=== PATIENT | male | born 1985 | race Caucasian/White ===

== ENCOUNTER 2021-05-16 13:40 | Outpatient (CLI) | payer BC ==
[2021-05-16 14:52] LABS: Hemoglobin 12.5 g/dL (13.5-17.5); Mean Corpuscular HGB CONC 35.1 g/dL (32.0-36.0); Mean Corpuscular Hemoglobin 31.8 pg (27.0-33.0); Mean Corpuscular Volume 90.6 fl (81.2-95.1); Mean Platelet Volume 10.4 fl (7.4-10.4); Platelet Count 245 10x3/uL (150-450); RBC Distribution Width 12.2 % (11.5-14.5); Red Blood Cell (RBC) Count 3.93 10x6/uL (4.32-5.72); White Blood Cell (WBC) Count 4.7 10x3/uL (3.5-10.5)
[2021-05-16 15:22] LABS: INR-International Normal Ratio 0.9; PTT 28.3 sec (22.0-33.0); Prothrombin Time 10.3 sec (9.5-12.1)
[2021-05-17 00:24] LABS: SARS-CoV-2 PCR by NAA Not Detected (NotDetected)
== END 2021-05-16 13:41 | disposition home or self-care (01) ==
LOC: LABBT 13:40
PROVIDERS: ATTEND Neurological Surgery
DX: Z01.812 Encounter for preprocedural laboratory examination (principal); M51.27 Other intervertebral disc displacement, lumbosacral region; Z20.822 Contact with and (suspected) exposure to COVID-19
CPT/HCPCS: 85027; 85610; 85730; U0003; U0005

== ENCOUNTER 2021-05-19 05:44 | Day surgery (SDC) | payer BC ==
[2021-05-16 13:02] VITALS: BMI 25.0
[2021-05-19] MEDS ORDERED: Thrombin 5000 UNITS/5 ML VIAL ONE (06:11)
[2021-05-19] MEDS ORDERED: Bupivacaine 0.25% HCL 30 ML VIAL ONE (06:11)
[2021-05-19] MEDS ORDERED: Neomycin-Polymyxin 1 ML AMP ONE (06:11)
[2021-05-19] MEDS ORDERED: EPINEPHrine 1 MG/ML AMP ONE (06:11)
[2021-05-19] MEDS ORDERED: Lidocaine 2% Jelly 5 ML TUBE ONE (06:16)
[2021-05-19] MEDS ORDERED: HYDROmorphone 2 MG/ML VIAL ONE (06:16)
[2021-05-19] MEDS ORDERED: Midazolam HCl 2 mg/2 ml Vial ONE ×2 (06:16→06:52)
[2021-05-19] MEDS ORDERED: Fentanyl 100 MCG/2 ML VIAL ONE (06:16)
[2021-05-19] MEDS ORDERED: ceFAZolin (BATCH) 2 GM/100 ML BAG ONE (06:52)
[2021-05-19] MEDS ORDERED: Dexamethasone 20 MG/5 ML VIAL ONE (07:04)
[2021-05-19] MEDS ORDERED: Ondansetron PF 4 MG/2 ML Vial ONE (07:04)
[2021-05-19] MEDS ORDERED: Rocuronium Bromide 10 MG/ML (10ML VIAL) ONE (07:04)
[2021-05-19] MEDS ORDERED: PROPOFOL 200 MG/20 ML VIAL ONE (07:04)
[2021-05-19] MEDS ORDERED: PHENYLEPHRINE-NS 100 MCG/ML 10 ML SYRINGE ONE (07:04)
[2021-05-19] MEDS ORDERED: Lidocaine 1% PF 5 ML VIAL ONE (07:04)
[2021-05-19] MEDS ORDERED: SUGAMMADEX SODIUM 200 MG/2 ML VIAL ONE (08:48)
[2021-05-19] MEDS ORDERED: HYDROcodone/Acetaminophen 5/325 mg Tablet ONE (11:06)
== END 2021-05-19 12:15 | disposition home or self-care (01) ==
LOC: SDC 05:44
PROVIDERS: ATTEND Neurological Surgery
PROC: 0ST20ZZ Resection of Lumbar Vertebral Disc, Open Approach (ICD-10-PCS; principal; 2021-05-19)
DX: M51.17 Intervertebral disc disorders with radiculopathy, lumbosacral region (principal); E78.00 Pure hypercholesterolemia, unspecified; Z79.899 Other long term (current) drug therapy; Z87.891 Personal history of nicotine dependence
CPT/HCPCS: 76000; J0171; J0690; J1100; J1170; J2250; J2405; J2704; J3010; J3370; S0020